=== PATIENT | male | born 1990 | race Caucasian/White ===

== ENCOUNTER 2017-02-09 12:26 | Emergency (ER) | payer OTHER ==
[~2017-02-09] VITALS: Ht 177.8 cm; Wt 78.6 kg
[2017-02-09] MEDS ORDERED: [UNRECOGNIZED DRUG - CODE] PO (12:38)
[2017-02-09] MEDS ORDERED: BACLOFEN 10 MG TAB PO ONE (13:30)
[2017-02-09] MEDS ORDERED: PERCOCET 5MG/325MG TAB PO ONE (13:30)
--- NOTE | 2017-02-09 13:52 | REP ---
Clinical: Trauma/injury . Technique: AP, lateral, bilateral oblique, and coned-down views. Findings: Alignment and lordosis is maintained. The vertebral bodies including transverse process and spinous processes are intact and normal. There is no evidence for acute fracture / compression injury or subluxation. No evidence for spondylolysis or spondylolisthesis. No significant degenerative change is noted. Impression: Normal lumbosacral spine radiograph series. Signed by Arcadio Snyder MD 02/09/2017 01:44 P
[2017-02-09] MEDS ORDERED: CYCL10TA PO (14:57)
[2017-02-09 15:06] VITALS: BP 128/75
== END 2017-02-09 15:07 | disposition home or self-care (01) ==
LOC: M ED 12:26
DX: S39.012A Strain of muscle, fascia and tendon of lower back, initial encounter (principal); X50.9XXA Other and unspecified overexertion or strenuous movements or postures, initial encounter; Y92.89 Other specified places as the place of occurrence of the external cause; Y93.B3 Activity, free weights; Y99.8 Other external cause status; K27.3 Acute peptic ulcer, site unspecified, without hemorrhage or perforation; Z88.8 Allergy status to other drugs, medicaments and biological substances; F17.220 Nicotine dependence, chewing tobacco, uncomplicated